=== PATIENT | male | born 2000 | race Caucasian/White ===

== ENCOUNTER 2020-03-26 17:03 | Emergency (ER) | payer OTHER, BC, MEDICAID, SELFPAY ==
[2020-03-26 17:03] VITALS: BP 173/100; PULSE 95; RESP 16; TEMP 36.7; O2SAT 99
[2020-03-26 17:04] VITALS: BP 173/100; PULSE 89; RESP 16; TEMP 36.7; O2SAT 99; BMI 33.0
--- NOTE | 2020-03-26 17:40 | CT_ITS ---
STUDY: CT BRAIN WITHOUT CONTRAST REASON FOR EXAM: Male, 19 years old. TRAUMA,HIT IN BACK OF HEAD WITH A SLIDING DOOR YESTERDAY,HEAD PAIN,? LOC RADIATION DOSAGE (If Supplied By Facility): CTDIvol = ( 44.99 ) mGy, DLP = ( 812.98 ) mGycm TECHNIQUE: Transaxial CT imaging of the brain was performed without administration of intravenous contrast material. Individualized dose optimization techniques were used for this CT. COMPARISON: No relevant priors. FINDINGS: Normal soft tissue structures. Normal calvarium. Normal size ventricles and extra-axial spaces for the patient''s age. Normal white matter tracts of the cerebral hemispheres. Normal basal ganglia and thalami. Normal brainstem. Normal cerebellum. There is no intracranial hemorrhage. There are no findings of an acute ischemic infarction. Normal visualized paranasal sinuses. CT/Brain/Head without Contrast IMPRESSION: Normal unenhanced CT scan of the brain. Electronically Signed: Fredi Alonso MD at 19:03 EDT , Service support ,
--- NOTE | 2020-03-26 17:40 | CT_ITS ---
STUDY: CT CERVICAL SPINE WITHOUT CONTRAST REASON FOR EXAM: Male, 19 years old. TRAUMA,HIT IN BACK OF HEAD WITH A SLIDING DOOR YESTERDAY,HEAD PAIN,? LOC,NECK PAIN RADIATION DOSAGE (If Supplied By Facility): CTDIvol = ( 22.75 ) mGy, DLP = ( 468.10 ) mGycm TECHNIQUE: High resolution transaxial imaging was performed without contrast material. Sagittal and coronal images were reconstructed. Individualized dose optimization techniques were used for this CT. COMPARISON: None FINDINGS: Normal craniovertebral junction. Normal anterior atlantoaxial articulation. Normal odontoid process. There is straightening of the normal cervical lordosis. There is no acute fracture. Normal vertebral bodies and posterior osseous elements. C2-3: Normal endplates. Normal disc height and morphology. Normal central canal and intervertebral neuroforamina. C3-4: Normal endplates. Normal disc height and morphology. Normal central canal and intervertebral neuroforamina. C4-5: Normal endplates. Disc bulge. Normal central canal and intervertebral neuroforamina. C5-6: Normal endplates. Disc bulge. Normal central canal and intervertebral neuroforamina. C6-7: Normal endplates. Normal disc height and morphology. Normal central canal and intervertebral neuroforamina. C7-T1: Normal endplates. Normal disc height and morphology. Normal central canal and intervertebral neuroforamina. Normal visualized soft tissue structures. CT/Spine Cervical without Contras IMPRESSION: No fracture. Straightening of the cervical lordosis. Electronically Signed: Fredi Alonso MD at 19:07 EDT , Service support ,
--- NOTE | 2020-03-26 17:41 | ED.VIS.GEN ---
History of Present Illness Chief Complaint: Head Injury Informant: Patient Narrative: . 19-year-old male presenting for evaluation secondary to head injury He states that he was trying to load a glass door onto a flatbed truck with another coworker and he is not sure whether his coworker dropped to the door or the wind caught it but it hit him in the back of the head. He had a short episode of LOC and recalls his coworker trying to pull the door off of him. He sustained no lacerations. He states he has a headache that is worse when he walks. He states that the car ride makes his head hurt as well. He does not have any nausea or vomiting. He is not staggering. He states he is never had any concussion symptoms before. Patient also states that he was exposed to employee 1 week ago that had COVID?19. His boss states that he cannot come back to work until he is tested. He has no symptoms of COVID?19. Past Medical History - Allergies and Home Meds Allergies/Adverse Reactions: Allergies No Known Allergies Allergy (Verified 03/26/20 17:08) Primary Care Physician: Bryon Perez DO [Primary Care Provider] - Past Medical History: - - Patient denies medical problems Surgical History: noncontributory Lives: With Family Smoking Status: Unknown if ever smoked Alcohol: None Drugs: None Review of Systems General: Denies: Chills, Fever, Sweats Eyes: Denies: Visual changes - bilaterally, Diplopia ENT: Denies: Rhinorrhea, Sore throat Cardiovascular: Denies: Chest pain, Palpitations Respiratory: Denies: Dyspnea, Cough, Dyspnea on exertion Genitourinary: Denies: Dysuria, Hematuria, Frequency Musculoskeletal: Denies: Back pain, Extremity Pain Skin: Denies: Rash, Wounds Neurological: Reports: Headache. Denies: Weakness, Parasthesia, Numbness Physical Exam Vital Signs/Narrative: Vital Signs Temp Pulse Resp BP Pulse Ox 03/26/20 17:04 98.1 F 89 16 173/100 H 99 03/26/20 17:03 98.1 F 95 16 173/100 H 99 Inital Vital Signs reviewed: Yes General: Well nourished, No Acute Distress Head: Normocephalic, Atraumatic Eyes: Perrl, EOMI ENT: Moist mucous membranes, No rhinorrhea, - - No hemotympanum. Neck: - - Diffuse tenderness to palpation of the cervical spine and paraspinal musculature. There is no obvious deformities or step-offs. Cardiovascular: Regular rate, Regular rhythm Respiratory: No distress, CTA bilaterally Abdomen: Soft, Nontender Extremities: Nontender, No edema Skin: Normal color, No rash Neurological: Alert, Oriented x3, Cranial nerves II-XII grossly intact Psychological: Normal affect, Normal Mood Diagnostic/Tx/Re-eval Clinical Impression(s) from Imaging Studies Brain CT 03/26/20 17:40 IMPRESSION: Normal unenhanced CT scan of the brain. Electronically Signed: Fredi Alonso MD at 19:03 EDT , Service support , Cervical Spine CT 03/26/20 17:40 IMPRESSION: No fracture. Straightening of the cervical lordosis. Electronically Signed: Fredi Alonso MD at 19:07 EDT , Service support , - Medical Decision Making 19-year-old male presenting with signs of concussion after head injury at work. He also has neck pain. CT of the head and cervical spine are negative. I do believe he has a concussion. Regarding concussion he was given return precautions. He should make an appointment to follow-up with the [facility] as well to ensure resolution. Patient also states that his boss wants him tested for COVID?19 because he has been exposed and he cannot go back to work until he test negative. He has no symptoms of COVID?19 so I do not believe he needs an x-ray or blood work. Patient is otherwise healthy as well. He will be discharged home to quarantine. Impression: 1. Concussion with loss of consciousness 2. Cervical strain 3. Possible exposure to COVID?19 ED Disposition - Plan for ED Patient: Disposition: Home or Assisted Living Instructions: ED Concussion, ED Sprain Strain Neck Referrals: Bryon Perez DO [Primary Care Provider] -
[2020-03-26 20:10] VITALS: BP 155/91; PULSE 89; RESP 18; O2SAT 97
== END 2020-03-26 20:11 | disposition home or self-care (01) ==
PROVIDERS: Emergency Provider Student in an Organized Health Care Education/Training Program; PCP Pediatrics
DX: S06.0X9A Concussion with loss of consciousness of unspecified duration, initial encounter (principal); S16.1XXA Strain of muscle, fascia and tendon at neck level, initial encounter; W22.8XXA Striking against or struck by other objects, initial encounter; Y93.9 Activity, unspecified; Y92.9 Unspecified place or not applicable; Y99.0 Civilian activity done for income or pay; Z20.818 Contact with and (suspected) exposure to other bacterial communicable diseases
CPT/HCPCS: 70450; 72125; 87635; 99282; U0003

== ENCOUNTER 2021-06-23 19:26 | Emergency (ER) | payer BC, MEDICAID, SELFPAY ==
[2021-06-23 19:27] VITALS: BP 163/99; PULSE 82; RESP 16; TEMP 36.4; O2SAT 97; BMI 33.0
--- NOTE | 2021-06-23 20:42 | CT_ITS ---
STUDY: CT ABDOMEN AND PELVIS WITH CONTRAST REASON FOR EXAM: Male, 20 years old. Right lower quadrant abdominal pain RADIATION DOSAGE (If Supplied By Facility): CTDIvol = ( 16.72 ) mGy, DLP = ( 1268.13 ) mGycm TECHNIQUE: Transaxial images were obtained from the dome of the diaphragm to the symphysis pubis without oral contrast. Oral and amp; IV Gastrografin and amp; 100mL Isovue-370 was administered. Sagittal and coronal images were reconstructed. Individualized dose optimization techniques were used for this CT. COMPARISON: None. FINDINGS: The visualized lung bases are unremarkable. The visualized portions of the heart are within normal limits. Liver is fatty infiltrated without mass or bile duct dilatation. Normal gallbladder and extrahepatic biliary system. Normal spleen. Normal pancreas. Normal bilateral adrenal glands. Normal right kidney. Normal left kidney. Normal visualized stomach. Normal small intestine. Normal colon. The appendix is visualized and appears normal. Normal abdominal aorta. Normal inferior vena cava. Normal retroperitoneum. Normal urinary bladder. Normal abdominal wall. Normal osseous structures. CT/Abdomen/Pelvis WITH Contrast IMPRESSION: Nonspecific fatty infiltrated liver. No acute abnormalities identified Electronically Signed: Leandro Bland MD at 22:27 EST , Service support ,
[2021-06-23 20:49] LABS: Bacteria 0 SEEN /hpf (None Seen); Red Blood Cells-Urine 0 SEEN /hpf (0-5); Squamous Epithelial Cells - UA 0 SEEN /hpf (0-5)
[2021-06-23] MEDS: 0.9% Normal Saline 1,000 ML 1000 ML IV (20:49)
[2021-06-23] MEDS: Morphine 4 MG/ML Syringe IV (20:49)
[2021-06-23] MEDS: Ondansetron 4 MG/2 ML Vial IV (20:49)
[2021-06-23 20:51] LABS: Color, Urine Yellow (Yellow); Glucose, Dipstick Normal (Normal); Ketone-Dipstick Negative (Negative); Leukocyte Esterase-Dipstick Negative /ul (Negative); Nitrite-Dipstick Negative (Negative); Occult Blood-Urine Negative /ul (Negative); Protein-Dipstick 30 mg/dl (Negative); Urine Bilirubin Dipstick Negative (Negative); Urine Clarity Clear (Clear); Urine Urobilinogen Normal (Normal)
[2021-06-23 21:02] LABS: Absolute Lymphocyte Count 2.22 X10^3/uL (0.83-4.51); Absolute Neutrophil Count 3.3 X10^3/uL (2.0-7.7); Basophil# 0.05 X10^3/uL; Basophil% 0.8 % (0-1); Eosinophils% 3.1 % (0-5); Hemoglobin 16.1 g/dL (13.0-16.5); Lymphocyte # 2.22 X10^3/ul (0.83-4.51); Lymphocyte % 33.9 % (19-41); Mean Corp Hgb Conc 35.8 g/dL (32-36); Mean Corpuscular Hgb 30.5 pg (27.0-32.0); Mean Corpuscular Volume 85.2 fL (80-94); Mean Platelet Vol. 9.5 fl (6.2-12.0); Monocyte# 0.72 X10^3/uL; NRBC Flagged by Analyzer 0 % (0-5); Neutrophil # 3.31 X10^3/uL (2.7-7.7); Neutrophil % 50.4 % (47-70); Platelet Count 244 K/mm3 (150-450); RBC Distribution Width CV 12.4 % (11.6-14.6); RBC Distribution Width SD 37.7 fl (35.1-43.9); Red Blood Count 5.28 M/mm3 (4.6-6.2); White Blood Count 6.6 K/mm3 (4.4-11.0)
[2021-06-23 21:03] LABS: Mucous, Urine 1+ /hpf (<or=2+); White Blood Cells 0-5 SEEN /hpf (0-5)
[2021-06-23 21:14] LABS: ALB/GLOB Ratio 0.9 RATIO (0.9-2.4); AST(SGOT) 18 U/L (15-37); Alanine Aminotransfer ALT/SGPT 52 U/L (16-61); Albumin, Serum 3.5 g/dL (3.2-5.0); Alkaline Phosphatase 80 U/L (45-117); Anion Gap 2 (5-15); BUN 14 mg/dL (7-18); BUN/Creat Ratio 16.4 RATIO (10-20); Calcium,Total 9.1 mg/dL (8.5-10.1); Chloride 106 mmol/L (98-107); Creatinine, Serum 0.85 mg/dL (0.70-1.30); EST Glomerular Filtration Rate 120 mL/min (>60); Est Glom Filt Rate - Afr Amer 145 mL/min (>60); Estimated Creatinine Clearance 155.36 ml/min; Glucose 102 mg/dL (74-106); Lipase 59 U/L (73-393); Potassium 3.9 mmol/L (3.5-5.1); Protein, Total 7.5 g/dL (6.4-8.2); Sodium Level 139 mmol/L (136-145)
--- NOTE | 2021-06-23 21:32 | ED.VIS.GI ---
HPI HPI - GI History of Present Illness Chief Complaint: Abd Pain Informant: patient Abdominal Pain/Flank Pain Onset: Days (3) Context: Gradual Onset Timing: Continuous Quality: Sharp and Stabbing Location: RLQ Worsened by: - (Palpation) Relieved by: - (Tylenol) Nausea/Vomiting/Emesis GI Symptom: Positive for Nausea; Negative for Vomiting Diarrhea/Melena/Hematochezia GI Symptom: Positive for Diarrhea; Negative for Melena and Hematochezia Associated Symptoms Associated Symptoms: Negative for Dysuria and Hematuria Narrative Narrative: Patient presents with right lower quadrant abdominal pain that has been constant for the past 3 days. Patient states it is sharp and stabbing. Patient states it is localized to the right lower quadrant. Patient states it is worse whenever he pushes on the area. Patient states Tylenol seems to help somewhat with the pain. Patient admits to nausea but denies any vomiting. Patient admits to diarrhea but denies any melena or hematochezia. Patient denies any dysuria or hematuria PFSH PFSH Home Medications NK 03/31/20 [History Last Taken Unknown] Allergy/AdvReac Type Severity Reaction Status Date / Time No Known Allergies Allergy Verified 06/23/21 19:29 Social History Smoking Status: Never smoker ROS ROS ED Constitutional Constitutional ED: Denies chills or fever(s) Eyes Eyes: Denies blurry vision or change in vision ENT ENT ED: Denies rhinorrhea or sore throat Cardiovascular Cardiovascular: Denies chest pain or palpitations Respiratory/Chest Respiratory/Chest: Denies cough or dyspnea Gastrointestinal Gastrointestinal: Reports abdominal pain, diarrhea and nausea; Denies vomiting Genitourinary Genitourinary ED: Denies dysuria or hematuria Musculoskeletal Musculoskeletal: Reports neck pain; Denies back pain Integumentary Denies abscess or rash Neurologic Neurologic: Reports headache(s); Denies weakness Allergic/Immunologic Allergic/Immunologic ED: Denies mouth swelling or urticaria EXAM Physical Exam Const Vital Signs: 06/23/21 19:27 Temperature 97.5 F L Temperature Source Temporal Pulse Rate 82 Respiratory Rate 16 Blood Pressure 163/99 H Blood Pressure Mean 120 Pulse Ox 97 Oxygen Delivery Method Room Air Positive well nourished, well developed and obese General Appearance ED: well developed Nutritional Appearance: obese HEENT Reports moist mucous membranes Neck supple and no JVD Resp normal respiratory effort and clear to auscultation bilaterally Cardio regular rate, regular rhythm and no murmurs GI normal to inspection, nondistended, normoactive bowel sounds and non-distended Auscultation: normoactive bowel sounds Palpation: soft and tender RLQ; Negative for guarding or rebound tenderness present Extremity normal to inspection General Extremety ED: Negative for edema or tenderness General Extremity: Negative for edema Neuro oriented x3, CN's II-XII intact bilaterally and no sensory deficits noted Sensorium / Orientation: alert Motor Exam: strength 5/5 throughout Psych mental status grossly normal Skin no rashes or lesions noted MDM MDM MDM Narrative Medical decision making narrative: Patient was given IV fluids, morphine, and Zofran. CBC was within normal limits. Comprehensive metabolic profile was normal. Urinalysis was normal. Lipase was normal. CT scan of the abdomen pelvis was obtained. There is no acute intra-abdominal abnormality. The appendix was visualized and was normal. This was interpreted by the radiologist and reviewed by myself. Patient was advised of his findings. Patient was instructed to follow-up with his primary care physician in 5 to 7 days. Patient understood and was agreeable with the plan. All questions were answered. Lab Data Attestation: I reviewed the patient's lab results. Labs: Laboratory Results - last 24 hr 06/23/21 06/23/21 06/23/21 20:30 20:52 20:52 WBC 6.6 RBC 5.28 Hgb 16.1 Hct 45.0 MCV 85.2 MCH 30.5 MCHC 35.8 RDW Std Deviation 37.7 RDW Coeff of Gabriela 12.4 Plt Count 244 MPV 9.5 Immature Gran % (Auto) 0.800 Neut % (Auto) 50.4 Lymph % (Auto) 33.9 [place] % (Auto) 11.0 H Eos % (Auto) 3.1 Baso % (Auto) 0.8 Absolute Neuts (auto) 3.3 Absolute Lymphs (auto) 2.22 Nucleated RBC % 0 Sodium 139 Potassium 3.9 Chloride 106 Carbon Dioxide 31.0 Anion Gap 2 L BUN 14 Creatinine 0.85 Estim Creat Clear Calc 155.36 Est GFR (MDRD) Af Amer 145 Est GFR (MDRD) Non-Af 120 BUN/Creatinine Ratio 16.4 Glucose 102 Calcium 9.1 Total Bilirubin 0.50 AST 18 ALT 52 Alkaline Phosphatase 80 Total Protein 7.5 Albumin 3.5 Globulin 4.0 Albumin/Globulin Ratio 0.9 Lipase 59 L Urine Color Yellow Urine Clarity Clear Urine pH 6.0 Ur Specific [place] 1.020 Urine Protein 30 H Urine Glucose (UA) Normal Urine Ketones Negative Urine Occult Blood Negative Urine Nitrite Negative Urine Bilirubin Negative Urine Urobilinogen Normal Ur Leukocyte Esterase Negative Urine RBC 0 SEEN Urine WBC 0-5 SEEN Ur Squamous Epith Cells 0 SEEN Urine Bacteria 0 SEEN Urine Mucus 1+ Radiography Diagnostic Testing: Clinical Impression(s) from Imaging Studies Abdomen/Pelvis CT 06/23/21 20:42 IMPRESSION: Nonspecific fatty infiltrated liver. No acute abnormalities identified Electronically Signed: Leandro Bland MD at 22:27 EST , Service support , Discharge Plan Triage Chief Complaint: Abd Pain ED Provider: Luisito Morfin Dx/Rx/DC Orders Clinical Impression: Abdominal pain, right lower quadrant Instructions: ED Abdominal Pain Unkn Cause Male... Prescriptions: No Action NK RF: 0 Primary Care Provider: Care Physician,No Primary Referrals: Gerhard Russ MD [STAFF PHYSICIAN] - 5-7 Days Care Physician,No Primary [Primary Care Provider] - Disposition Disposition: Home, Self Care
[2021-06-23 23:12] VITALS: PULSE 75; RESP 15; O2SAT 99
== END 2021-06-23 23:12 | disposition home or self-care (01) ==
PROVIDERS: Emergency Provider Emergency Medicine
DX: R10.31 Right lower quadrant pain (principal); R11.0 Nausea; R19.7 Diarrhea, unspecified; E66.9 Obesity, unspecified
CPT/HCPCS: 74177; 80053; 81001; 83690; 85025; 96361; 96374; 96375; 99283; J7030; Q9967; A4216; J2405

== ENCOUNTER 2021-12-20 15:36 | Emergency (ER) | payer BC, MEDICAID, SELFPAY ==
[2021-12-20 15:38] VITALS: BP 130/118; PULSE 112; RESP 16; TEMP 35.8; O2SAT 97; BMI 33.0
--- NOTE | 2021-12-20 15:50 | RAD_ITS ---
EXAM: XR LEFT ANKLE COMPLETE, 3 OR MORE VIEWS CLINICAL INDICATION: INJURY TECHNIQUE: Frontal, lateral and oblique views of the left ankle. This report was created using [employer] report generation technology. COMPARISON: None. FINDINGS: BONES/JOINTS: Unremarkable. No acute fracture. No subluxation. Normal alignment. Preservation of the joint space. No sclerotic or destructive changes observed. SOFT TISSUES: Unremarkable. No soft tissue swelling or gas. No radiopaque foreign body. RAD/Ankle min 3 Views IMPRESSION: Negative left ankle x-rays. Electronically Signed: Ramírez Alejo MD at 16:14 EDT Reading Location ID and State: [facility] / [place] , Service support ,
--- NOTE | 2021-12-20 16:34 | ED.VIS.LOWEX ---
HPI History of Present Illness HPI Narrative: Patient presents with left ankle pain that occurred today. Patient states he inverted his ankle while walking down a step. Patient states he stepped in a hole at the bottom of the steps and twisted his ankle. Patient describes the pain as aching and burning. Patient states it is worse with movement. Patient states it is better with rest. Patient admits to some tingling in his toes. Patient states he felt a pop. Patient denies any weakness. Patient denies any other injuries. Chief Complaint: Lower Extremity Injury Informant: patient Occured/Mechanism Comment: Inversion injury Onset/Context/Timing Onset: Today Context: Sudden Onset Timing: Continuous Quality of Pain: Aching and Burning Location: Left ankle Worsened by: Movement Relieved by: Rest Associated Symptoms Associated Symptoms: Positive for Parasthesia; Negative for Weakness or Loss of Funtion PFSH PFSH Home Medications NK 03/31/20 [History Last Taken Unknown] Allergy/AdvReac Type Severity Reaction Status Date / Time No Known Allergies Allergy Verified 12/20/21 15:40 Surgical History Hx of cholecystectomy Social History Smoking Status: Never smoker ROS ROS ED Constitutional Constitutional ED: Denies chills or fever(s) Eyes Eyes: Denies blurry vision or change in vision ENT ENT ED: Denies rhinorrhea or sore throat Cardiovascular Cardiovascular: Denies chest pain or palpitations Respiratory/Chest Respiratory/Chest: Denies cough or dyspnea Gastrointestinal Gastrointestinal: Denies nausea or vomiting Genitourinary Genitourinary ED: Denies dysuria or hematuria Musculoskeletal Musculoskeletal: Denies back pain or neck pain Integumentary Denies abscess or rash Neurologic Neurologic: Denies headache(s) or weakness Allergic/Immunologic Allergic/Immunologic ED: Denies mouth swelling or urticaria EXAM Physical Exam Const Vital Signs: 12/20/21 15:38 Temperature 96.5 F L Temperature Source Temporal Pulse Rate 112 H Respiratory Rate 16 Blood Pressure 130/118 H Blood Pressure Mean 122 Pulse Ox 97 Oxygen Delivery Method Room Air Positive well nourished and well developed General Appearance ED: well developed and NAD HEENT Reports moist mucous membranes Neck full ROM Extremity Extremity Narrative: There is tenderness over the anterior lateral aspect of the left ankle. There is some mild edema. There is no ecchymosis. There is no deformity noted. There is no tenderness over the fifth metatarsal. There is no tenderness over the proximal fibula. There is some mild laxity with varus stress testing. Valgus stress was negative. Anterior drawer was negative. Pedal pulses are equal bilateral. Sensation was intact to light touch in all digits. Capillary refill was less than 2 seconds in all digits. Neuro oriented x3, CN's II-XII intact bilaterally, moves all extremities and no sensory deficits noted Sensorium / Orientation: alert Motor Exam: strength 5/5 throughout Psych mental status grossly normal MDM MDM MDM Narrative Medical decision making narrative: X-rays of the left ankle were obtained. There are 3 views. On my interpretation, there is no acute fracture. There is no dislocation. There is no soft tissue swelling. Radiologist also interpreted the x-rays and agrees. Patient was given an Aircast. Patient was instructed to ice and elevate the left ankle. Patient was instructed to follow-up with his primary care physician in 5 to 7 days. Patient was instructed to take Tylenol or ibuprofen as needed for pain. Patient understood and was agreeable with the plan. All questions were answered. Radiography Diagnostic Testing: Clinical Impression(s) from Imaging Studies Ankle X-Ray 12/20/21 15:50 IMPRESSION: Negative left ankle x-rays. Electronically Signed: Ramírez Alejo MD at 16:14 EDT Reading Location ID and State: [facility] / [place] , Service support , Discharge Plan Triage Chief Complaint: Lower Extremity Injury ED Provider: Luisito Morfin Dx/Rx/DC Orders Clinical Impression: Left ankle sprain, Obesity (BMI 30.0-34.9) Instructions: ED Ankle Sprain (Adult) Prescriptions: No Action NK Primary Care Provider: Sim Echevarria Referrals: Sim Echevarria [Primary Care Provider] - 5-7 Days Disposition Disposition: Home, Self Care
[2021-12-20 17:34] VITALS: RESP 18
== END 2021-12-20 17:35 | disposition home or self-care (01) ==
PROVIDERS: Emergency Provider Emergency Medicine; PCP Student in an Organized Health Care Education/Training Program; Visit Provider Emergency Medicine
DX: S93.402A Sprain of unspecified ligament of left ankle, initial encounter (principal); X50.1XXA Overexertion from prolonged static or awkward postures, initial encounter; Y93.01 Activity, walking, marching and hiking; E66.9 Obesity, unspecified
CPT/HCPCS: 73610; 99283

== ENCOUNTER 2022-11-01 21:03 | Emergency (ER) | payer BC, MEDICAID, SELFPAY ==
[2022-11-01 21:04] VITALS: BP 155/87; PULSE 108; RESP 16; TEMP 36.2; O2SAT 97; BMI 36.1
--- NOTE | 2022-11-01 21:10 | EKG12_ITS ---
Test Reason : CP Blood Pressure : / mmHG Vent. Rate : 098 BPM Atrial Rate : 098 BPM P-R Int : 128 ms QRS Dur : 090 ms QT Int : 328 ms P-R-T Axes : 056 076 026 degrees QTc Int : 418 ms Normal sinus rhythm Normal ECG Confirmed by LUKE VIRAMONTES, CHRISTINE ([id number]), editor newspaper CARMELA WYNN ([id number]) on 11/02/2022 12:58:48 P M Referred By: NICOLE Confirmed By:PIYUSH BUTLER MD
--- NOTE | 2022-11-01 21:20 | RAD_ITS ---
INDICATION: chest pain EXAMINATION/TECHNIQUE: X-RAY - XR Chest 1 View COMPARISON: FINDINGS: LINES/DEVICES: None. LUNGS: No consolidation, edema or effusion. No pneumothorax. MEDIASTINUM AND CARDIOVASCULAR STRUCTURES: Cardiac silhouette not enlarged. Central airways and mediastinal contour are unremarkable. BONES AND SOFT TISSUES: Unremarkable. RAD/Chest 1 View (Portable) IMPRESSION: No radiographic evidence of acute cardiopulmonary disease. Electronically Signed: Sean Gr DO at 21:32 EDT ,
[2022-11-01 21:24] LABS: Absolute Lymphocyte Count 2.51 X10^3/uL (0.83-4.51); Absolute Neutrophil Count 4.6 X10^3/uL (2.0-7.7); Basophil# 0.05 X10^3/uL; Basophil% 0.6 % (0-1); Eosinophil# 0.18 X10^3/uL; Eosinophils% 2.3 % (0-5); Hemoglobin 16.4 g/dL (13.0-16.5); Lymphocyte # 2.51 X10^3/ul (0.83-4.51); Lymphocyte % 31.8 % (19-41); Mean Corp Hgb Conc 34.2 g/dL (32-36); Mean Corpuscular Hgb 29.5 pg (27.0-32.0); Mean Corpuscular Volume 86.5 fL (80-94); Mean Platelet Vol. 9.6 fl (6.2-12.0); Monocyte% 6.3 % (0-10); NRBC Flagged by Analyzer 0 % (0-5); Neutrophil % 58.4 % (47-70); Platelet Count 277 K/mm3 (150-450); RBC Distribution Width CV 12.2 % (11.6-14.6); RBC Distribution Width SD 38.5 fl (35.1-43.9); Red Blood Count 5.55 M/mm3 (4.6-6.2); White Blood Count 7.9 K/mm3 (4.4-11.0)
[2022-11-01 21:42] LABS: Anion Gap 6 (5-15); BUN 15 mg/dL (7-18); BUN/Creat Ratio 14.4 RATIO (10-20); Calcium,Total 9.2 mg/dL (8.5-10.1); Chloride 106 mmol/L (98-107); Creatinine, Serum 1.04 mg/dL (0.70-1.30); EST Glomerular Filtration Rate 94 mL/min (>60); Est Glom Filt Rate - Afr Amer 114 mL/min (>60); Estimated Creatinine Clearance 124.84 ml/min; Glucose 123 mg/dL (74-106); Potassium 3.7 mmol/L (3.5-5.1); Sodium Level 140 mmol/L (136-145); Troponin-I HS (w/2H Reflex) 5 pg/mL (3.0-78.0)
--- NOTE | 2022-11-01 22:43 | EX.ED.DYSGE1 ---
HPI History of Present Illness Chief Complaint: Chest Pain Narrative Narrative: Patient is a 22-year-old male who according to family awoke in the middle the night Monday night into Monday morning screaming. They state they are unsure if he had a night terror or why he was screaming or if he was anxious. He did report some vague chest discomfort at that time. Patient states that his vague chest discomfort has persisted throughout the day and therefore he was brought in for cardiac rule out. Patient denies any history of cardiac disease at young age in the family he denies history of hypertension hyperlipidemia tobacco abuse or illicit drug use. He also denies any history of recent travel surgery or history of DVT/PE PFSH PFSH Home Medications NK 03/31/20 [History Last Taken Unknown] Allergy/AdvReac Type Severity Reaction Status Date / Time No Known Allergies Allergy Verified 12/20/21 15:40 Surgical History Hx of cholecystectomy Social History Smoking Status: Never smoker ROS ROS ED Constitutional Constitutional ED: Denies chills or fever(s) ENT ENT ED: Denies sore throat Cardiovascular Cardiovascular: Reports chest pain; Denies palpitations or racing heartbeat Respiratory/Chest Respiratory/Chest: Denies cough or dyspnea Gastrointestinal Gastrointestinal: Denies abdominal pain, diarrhea, nausea or vomiting Genitourinary Genitourinary ED: Denies dysuria Musculoskeletal Musculoskeletal: Denies myalgias Integumentary Denies rash Neurologic Neurologic: Denies headache(s) Psychiatric Psychiatric: Reports anxiety; Denies suicidal ideation or suicidal thoughts Hematologic/Lymphatic Hematologic/Lymphatic: Denies easy bleeding or easy bruising EXAM Physical Exam Const Vital Signs: 11/01/22 21:04 11/01/22 22:10 Temperature 97.2 F L Temperature Source Temporal Pulse Rate 108 H Respiratory Rate 16 Blood Pressure 155/87 H Blood Pressure Mean 109 Pulse Ox 97 Oxygen Delivery Method Room Air Room Air Positive well nourished and well developed General Appearance ED: well developed HEENT HEENT Narrative: Normocephalic atraumatic Eyes PERRL and EOMs intact bilaterally Neck supple Chest Wall palpation of chest normal Resp normal respiratory effort and clear to auscultation bilaterally Cardio regular rate and regular rhythm Rate: other Other Details: Radial pulses are plus 2 out of 4 bilaterally are equal and symmetric GI normal to inspection, nondistended, normoactive bowel sounds, non-tender, non-distended and no masses GI Narrative: No voluntary guarding or rigidity no pulsatile mass Auscultation: normoactive bowel sounds Palpation: soft Extremity normal to inspection Extremity Narrative: No asymmetric edema no pitting edema negative Homans' sign bilaterally Neuro oriented x3 and CN's II-XII intact bilaterally Sensorium / Orientation: alert Psych Psych Narrative: Patient has a nervous/anxious affect but no homicidal or suicidal ideation Skin no rashes or lesions noted MDM MDM MDM Narrative Medical decision making narrative: Patient presented to the ER in no acute distress and reported spontaneous improvement of his symptoms. He is low risk for cardiovascular disease as well as DVT/PE and he reports that symptoms have been ongoing for over 24-hour. Differential diagnosis includes anxiety versus CAD versus myocarditis versus lung pathology such as pneumonia or pneumothorax. Chest x-ray revealed no acute lung pathology and EKG is sinus rhythm and troponin is normal at 5. As patient states he has had symptoms persistently for the last 24 hours I do not feel there is need for delta troponin. Also as he has no risk factors for DVT/PE do not feel there is need for a D-dimer. At this time feel that symptoms are mostly related to anxiety and as cardiac work-up is negative and he had improvement of symptoms without treatment he is otherwise safe for History & Record Review Discussion w/independent historian: Patient and Family Lab Data Attestation: I reviewed the patient's lab results. Labs: Laboratory Results - last 24 hr 11/01/22 11/01/22 21:19 21:19 WBC 7.9 RBC 5.55 Hgb 16.4 Hct 48.0 MCV 86.5 MCH 29.5 MCHC 34.2 RDW Std Deviation 38.5 RDW Coeff of Gabriela 12.2 Plt Count 277 MPV 9.6 Immature Gran % (Auto) 0.600 Neut % (Auto) 58.4 Lymph % (Auto) 31.8 [place] % (Auto) 6.3 Eos % (Auto) 2.3 Baso % (Auto) 0.6 Absolute Neuts (auto) 4.6 Absolute Lymphs (auto) 2.51 Nucleated RBC % 0 Sodium 140 Potassium 3.7 Chloride 106 Carbon Dioxide 28.0 Anion Gap 6 BUN 15 Creatinine 1.04 Estim Creat Clear Calc 124.84 Est GFR (MDRD) Af Amer 114 Est GFR (MDRD) Non-Af 94 BUN/Creatinine Ratio 14.4 Glucose 123 H Calcium 9.2 Troponin I High Sens 5 Radiography Diagnostic Testing: Clinical Impression(s) from Imaging Studies Chest X-Ray 11/01/22 21:20 IMPRESSION: No radiographic evidence of acute cardiopulmonary disease. Electronically Signed: Sean Gr DO at 21:32 EDT Reading Location ID and State: [facility] / [place] Tel [phone], Service support , Chest x-ray as interpreted by the emergency medicine physician reveals no acute pneumothorax infiltrate or pleural effusion Discharge Plan Triage Chief Complaint: Chest Pain ED Provider: Ubaldo Irizarry Dx/Rx/DC Orders Clinical Impression: Acute nonspecific chest pain with low risk of coronary artery disease, Anxiety Instructions: ED Anxiety Reaction, ED Chest Pain, Uncertain Cause Prescriptions: No Action NK Primary Care Provider: Sim Echevarria Referrals: Sim Echevarria DO [Primary Care Provider] - Activity Restrictions/Additional Instructions: Your work-up today shows no signs of cardiac damage or abnormal heart rhythm. Your symptoms could be related to underlying anxiety so therefore please talk to your family doctor about treatment for this and return to the ER should you have any further concerns Disposition Disposition: Home, Self Care Discharge Date/Time: 11/01/22 23:00
== END 2022-11-01 23:00 | disposition home or self-care (01) ==
PROVIDERS: Emergency Provider Emergency Medicine; PCP Student in an Organized Health Care Education/Training Program; Visit Provider Emergency Medicine
DX: R07.9 Chest pain, unspecified (principal); F41.9 Anxiety disorder, unspecified
CPT/HCPCS: 71045; 80048; 84484; 85025; 93005; 99284; J7030; A4216

== ENCOUNTER 2024-10-13 21:20 | Emergency (ER) | payer BC, SELFPAY ==
[2024-10-13 21:21] VITALS: BP 122/95; PULSE 96; RESP 18; TEMP 37.1; O2SAT 97; BMI 39.6
--- NOTE | 2024-10-13 22:14 | RAD_ITS ---
PROCEDURE: CHEST PA AND LATERAL 10/13/2024 REASON FOR EXAM: COUGH TECHNIQUE: Frontal and lateral views of the chest. COMPARISON: None FINDINGS: Hardware: None Heart: The heart size is normal. Mediastinum: The mediastinal contour is unremarkable. Lungs: The lungs are clear. Bones: The bones are unremarkable. RAD/Chest PA and Lateral IMPRESSION: NO ACUTE FINDINGS. Reading Location: [place]
[2024-10-13] MEDS: Albuterol Sulfate 8 gm Inhaler (60 puffs) 2 PUFF INHALATION (22:37)
--- NOTE | 2024-10-13 23:33 | EDS_ITS ---
HPI History of Present Illness Chief Complaint: Cough Informant: patient and parent Narrative Narrative: Patient is a 24-year-old male with past medical history of anxiety. He also reports mild seasonal allergies. He denies any known sick contacts but states for the past 7 to 10 days he has had congestion and cough. He denies any history of smoking or vaping or lung disorders such as asthma. He states that he does not typically have symptoms like this or that persist for this long and has concern for underlying infection and therefore comes in for evaluation. PFSH PFSH Home Medications ?Medication ?Instructions ?Recorded ?Last Taken ?Type azelastine 137 mcg (0.1 %) nasal 2 spray intranasal BI D #30 mL 10/13/24 Unknown Rx spray benzonatate 200 mg capsule 200 mg PO TID PRN cough #30 caps 10/13/24 Unknown Rx citalopram 40 mg tablet 40 mg PO DAILY 10/13/24 Unkn own History prednisone 20 mg tablet 40 mg (2 x 20 mg) PO DAILY 5 days 10/13/24 Unknown Rx #10 tabs Allergy/AdvReac Type Severity Reaction Status Date / Time No Known Allergies Allergy Verified 10/13/24 21:24 Surgical History Hx of cholecystectomy Social History Smoking Status: Never smoker ROS ROS ED Constitutional Constitutional ED: Denies chills or fever(s) Eyes Eyes: Denies change in vision ENT ENT ED: Reports rhinorrhea; Denies ear pain or sore throat Cardiovascular Cardiovascular: Denies chest pain Respiratory/Chest Respiratory/Chest: Reports cough; Denies dyspnea Gastrointestinal Gastrointestinal: Denies abdominal pain, diarrhea, nausea or vomiting Musculoskeletal Musculoskeletal: Denies myalgias Integumentary Denies rash Neurologic Neurologic: Denies headache(s) Psychiatric Psychiatric: Reports anxiety Allergic/Immunologic Allergic/Immunologic ED: Denies mouth swelling, tongue swelling or urticaria EXAM Physical Exam Const Vital Signs: 10/13/24 21:21 10/13/24 22:11 Temperature 98.7 F Temperature Source Temporal Pulse Rate 96 Respiratory Rate 18 Respiratory Effort Normal Respiratory Depth Normal Respiratory Pattern Normal Blood Pressure 122/95 H Blood Pressure Mean 104 Pulse Ox 97 Oxygen Delivery Method Room Air Room Air Positive well nourished and well developed General Appearance ED: well developed; Negative for pallor HEENT Reports moist mucous membranes HEENT Narrative: Nasal mucosa is hyperemic and boggy with enlarged inferior nasal turbinate There is cobblestoning noted in the posterior pharynx consistent with sinus drainage. No airway edema or compromise. No secondary findings to suggest infection Bilateral TMs are slightly retracted. No infectious changes noted. Eyes PERRL and EOMs intact bilaterally Neck supple and no JVD Resp normal respiratory effort Resp Narrative: Breath sounds are slight diminished throughout with faint expiratory wheeze in the bilateral bases However no nasal flaring retractions tachypnea or accessory muscle use. Cardio regular rate and regular rhythm Extremity normal to inspection Extremity Narrative: No asymmetric edema no pitting edema negative Homans' sign bilaterally Neuro oriented x3, CN's II-XII intact bilaterally and no sensory deficits noted Sensorium / Orientation: alert Motor Exam: strength 5/5 throughout Psych mental status grossly normal Skin no rashes or lesions noted General Skin Exam: Negative for jaundice or pallor MDM MDM MDM Narrative Medical decision making narrative: Patient arrived to the ER slightly hypertensive but otherwise with stable vitals. He reported roughly 7 to 10 days of congestion and cough and therefore there is concern for viral infection such as COVID influenza or RSV or potential pneumonia. Secondary to this a viral swab was obtained as well as chest x-ray. Viral swab was negative and chest x-ray reveals no acute lung pathology. After receiving albuterol inhaler as well as steroid and Tessalon he had improvement of symptoms and remained in no acute respiratory distress. Therefore without signs of systemic infection or respiratory distress or need for supplemental oxygen there is no need for further workup and he is otherwise safe for discharge with symptomatic care. History & Record Review Discussion w/independent historian: Patient and Family Radiography Diagnostic Testing: Clinical Impression(s) from Imaging Studies Chest X-Ray 10/13/24 22:14 IMPRESSION: NO ACUTE FINDINGS. [facility] chest x-ray as interpreted by the emergency medicine physician reveals no acute infiltrate pneumothorax or pleural effusion. Discharge Plan Triage Chief Complaint: Cough ED Provider: Ubaldo Irizarry Dx/Rx/DC Orders Clinical Impression: Viral upper respiratory tract infection with cough, Anxiety Instructions: ED URI, Viral, No Abx (Adult) Prescriptions: New azelastine 137 mcg (0.1 %) spray,non-aerosol 2 spray intranasal BID Qty: 30 0RF Rx Instructions: administer into each nostril prednisone 20 mg tablet 40 mg PO DAILY 5 Days Qty: 10 0RF benzonatate 200 mg capsule 200 mg PO TID PRN (Reason: cough) Qty: 30 0RF No Action citalopram 40 mg tablet 40 mg PO DAILY Stand Alone Forms: ED Work / School Excuse Primary Care Provider: Sim Echevarria Referrals: Sim Echevarria, [Primary Care Provider] - Activity Restrictions/Additional Instructions: Your x-ray showed no signs of pneumonia and your COVID influenza and RSV test was negative indicating you have another viral infection. This will last on average 18 to 21 days. Take the prescribed medication as directed to help control your symptoms and continue to use the inhaler that was provided to you in the ER. Return to the ER should you have any further concerns Print Language: Kiswahili Disposition Disposition: Home, Self Care
[2024-10-13] MEDS: Benzonatate 100 MG Capsule 200 MG PO (23:44)
[2024-10-13] MEDS: predniSONE 20 MG Tablet 60 MG PO (23:44)
== END 2024-10-13 23:46 | disposition home or self-care (01) ==
PROVIDERS: Emergency Provider Emergency Medicine; PCP Student in an Organized Health Care Education/Training Program; Visit Provider Emergency Medicine
DX: J06.9 Acute upper respiratory infection, unspecified (principal); Z11.52 Encounter for screening for COVID-19; F41.9 Anxiety disorder, unspecified; Z79.899 Other long term (current) drug therapy
CPT/HCPCS: 71046; 87631; 99283